=== PATIENT | male | born 1960 | race Caucasian/White ===

== ENCOUNTER 2018-09-23 15:20 | Emergency (ER) | payer BC ==
[~2018-09-23] VITALS: Ht 175.3 cm; Wt 76.5 kg
[2018-09-23 16:29] LABS: ALANINE AMINOTRANSFERASE 25 U/L (12-78); ALBUMIN 2.7 G/DL (3.4-5.0); ALBUMIN/GLOBULIN RATIO 0.5 (1.1-1.5); ALKALINE PHOSPHATASE 120 IU/L (46-116); ANION GAP 7 (8-16); ASPARTATE AMINO TRANSFERASE 48 U/L (10-37); BILIRUBIN,TOTAL 2.1 MG/DL (0.1-1.0); BLOOD UREA NITROGEN 5 MG/DL (7-18); CALCIUM 9.1 MG/DL (8.5-10.1); CHLORIDE 103 MMOL/L (99-107); CREATININE 0.71 MG/DL (0.60-1.10); GLUCOSE 113 MG/DL (70-104); POTASSIUM 3.3 MMOL/L (3.5-5.1); SODIUM 137 MMOL/L (135-145); TOTAL CARBON DIOXIDE 27.3 MMOL/L (24-32); TOTAL PROTEIN 7.7 G/DL (6.4-8.2); eGFR > 90 ML/MIN
[2018-09-23] MEDS ORDERED: LIDOcaine 1% w/epiNEPHrine 1:200,000 30ml vial IM ONE (16:30)
[2018-09-23 16:32] LABS: EOSINOPHILS # (AUTO) 0.1 X10'3 (0-0.9); HEMOGLOBIN 13.2 g/dl (14.0-17.9); NEUTROPHILS # (AUTO) 3.8 X10'3 (1.8-7.7)
[2018-09-23 16:33] LABS: BASOPHILS # (AUTO) 0.1 X10'3 (0-0.2); BASOPHILS % (AUTO) 1.9 % (0-1); EOSINOPHILS % (AUTO) 1.4 % (0-6); HEMATOCRIT 39.3 % (42.0-52.0); LYMPHOCYTES # (AUTO) 1.4 X10'3 (1.1-4.8); LYMPHOCYTES % (AUTO) 22.5 % (21-51); MEAN CORPUSCULAR HEMOGLOBIN 33.9 PG (27.0-31.0); MEAN CORPUSCULAR HGB CONC 33.7 g/dL (33.0-36.5); MEAN CORPUSCULAR VOLUME 100.4 FL (78-98); MEAN PLATELET VOLUME 7.6 FL (7.4-10.4); MONOCYTES % (AUTO) 15.6 % (2-12); NEUTROPHILS % (AUTO) 58.6 % (42-75); PLATELET COUNT 242 X10'3 (140-440); RED BLOOD COUNT 3.91 X10'6 (4.70-6.10); RED CELL DISTRIBUTION WIDTH 13.6 % (11.5-14.5); WHITE BLOOD COUNT 6.4 X10'3 (4.5-11.0)
[2018-09-23 16:59] LABS: PLATELET ESTIMATE NORMAL
[2018-09-23 17:05] LABS: TOTAL CELLS COUNTED 100
[2018-09-23 17:06] LABS: LARGE PLATELETS FEW
[2018-09-23 17:33] VITALS: BP 152/87
[2018-09-23 17:43] LABS: PARTIAL THROMBOPLASTIN TIME 32 SECONDS (22-32)
== END 2018-09-23 17:35 | disposition home or self-care (01) ==
LOC: ER 15:23
DX: R18.8 Other ascites (principal)
CPT/HCPCS: 36415; 49082; 49083; 80053; 85025; 85610; 85730; 99285

== ENCOUNTER 2018-10-25 07:34 | Emergency (ER) | payer BC, OTHER ==
[~2018-10-25] VITALS: Ht 175.3 cm; Wt 73.8 kg
[2018-10-25 07:40] VITALS: BP 152/88
--- NOTE | 2018-10-25 08:00 | NUR ---
DR. MCKEON AT BEDSIDE.
== END 2018-10-25 08:24 | disposition home or self-care (01) ==
LOC: ER 07:35
DX: R18.8 Other ascites (principal)
CPT/HCPCS: 99284

== ENCOUNTER 2018-12-04 07:51 | Day surgery (SDC) | payer BC ==
[~2018-12-04] VITALS: Ht 175.3 cm; Wt 81.3 kg
[2018-12-04 08:20] VITALS: BP 157/104
[2018-12-04] MEDS ORDERED: albumin 25% 100mL bottle x 1 IV PRN (08:20)
[2018-12-04] MEDS ORDERED: normal saline 1,000 ML IV SCH (08:20)
[2018-12-04 09:04] VITALS: BP_SYST 15; BP_SYST 151; BP_DIAS 95
[2018-12-04] MEDS ORDERED: AMLO5TAB PO (09:11)
[2018-12-04] MEDS ORDERED: ATEN-169 PO (09:11)
[2018-12-04] MEDS ORDERED: MILK1TAB PO (09:11)
[2018-12-04] MEDS ORDERED: LISI1TAB29 PO (09:11)
[2018-12-04 09:20] VITALS: BP 151/94
[2018-12-04 09:35] VITALS: BP 147/96
[2018-12-04 09:50] VITALS: BP 149/92
[2018-12-04 10:05] VITALS: BP 141/85
[2018-12-04 10:53] LABS: BF MESOTHELIAL CELLS OCCASIONAL; BF RBC COUNT 124 /CU MM; BF WBC COUNT 78 /CU MM (0-1000); BFAPPEAR CLEAR; BFCOLOR YELLOW; BFVOLUME 54 ML; LYMPHOCYTES,BODY FLUID 87 %; MONOCYTES,BODY FLUID 7 %; NEUTROPHILS,BODY FLUID 6 %
[2018-12-04 11:21] LABS: ALBUMIN,BODY FLUID < 0.6 G/DL
[2018-12-04 11:22] LABS: TOTAL PROTEIN,BODY FLUID < 2.0 G/DL
== END 2018-12-04 10:40 | disposition home or self-care (01) ==
LOC: SSTAY O 07:51
PROVIDERS: ATTEND Radiology Diagnostic Radiology
DX: K70.31 Alcoholic cirrhosis of liver with ascites (principal); I10 Essential (primary) hypertension; F12.90 Cannabis use, unspecified, uncomplicated; Z72.89 Other problems related to lifestyle; Z79.899 Other long term (current) drug therapy
CPT/HCPCS: 49083; 82042; 84157; 89051; C1729; J7030; P9047